=== PATIENT | male | born 1940 | race Caucasian/White ===

== ENCOUNTER → 2018-07-15 | Outpatient (CLI) | payer MEDICARE ==
[~2018-07-15] MED LIST: ALBUTEROL NEB; ATOR20TA PO; AZIT250T89 PO; BICA50TA5 PO; BUDE0.5A INH; CALCIUM PEG; CHOL200024 PO; DILT90TA PO; FISH OIL OMEGA1 EACH PO; FORM20VI NEB; GLUC1TAB27 PO; LEVO125T5 PO; OXYGEN NAS; SPIR25TA5 PO; TAMS0.4C2 PO; THEO400T2 PO; TIOT18CA INH; TORS5TAB4 PO; VIT1TABL32 PO; WARF6TAB47 PO; [UNRECOGNIZED DRUG - OTHER] PEG
== END | disposition home or self-care (01) ==
LOC: CVU 08:19
PROVIDERS: ATTEND Internal Medicine Cardiovascular Disease
DX: I08.3 Combined rheumatic disorders of mitral, aortic and tricuspid valves (principal); I82.411 Acute embolism and thrombosis of right femoral vein; I82.812 Embolism and thrombosis of superficial veins of left lower extremity; J44.9 Chronic obstructive pulmonary disease, unspecified; I10 Essential (primary) hypertension
CPT/HCPCS: 93306; 93970

== ENCOUNTER 2019-03-24 09:33 | Day surgery (SDC) | payer MEDICARE ==
[~2019-03-24] VITALS: Ht 185.4 cm; Wt 102.3 kg
[2019-03-24] MEDS ORDERED: SODIUM CHLORIDE 0.9% 500 ML IV PRN (10:00)
[2019-03-24 10:08] VITALS: BP 137/78
[2019-03-24 10:23] LABS: INTERNATIONAL NORMALIZED RATIO 2.72 (0.93-1.1); PROTHROMBIN TIME 29.1 Seconds (9.6-11.5)
[2019-03-24 10:26] LABS: ANION GAP 11 mmol/L (5-15); CALCIUM 9.7 mg/dL (8.5-10.1); CHLORIDE 98 mmol/L (98-107); CREATININE 1.19 mg/dL (0.7-1.3)
[2019-03-24] MEDS ORDERED: PLEASE ENTER HEIGHT AND WEIGHT MC SCH (10:30)
[2019-03-24] MEDS ORDERED: METO25TA91 PO (10:41)
[2019-03-24] MEDS ORDERED: LEUP3.75 SQ (10:41)
[2019-03-24] MEDS ORDERED: DOXY100C2 PO (10:41)
[2019-03-24] MEDS ORDERED: TIOT4MIS5 INH (10:49)
[2019-03-24] MEDS ORDERED: PROPOFOL 10 MG/ML, 20ML ONE (12:15)
== END 2019-03-24 13:19 | disposition home or self-care (01) ==
LOC: CACL 09:33
PROVIDERS: ATTEND Internal Medicine Cardiovascular Disease
DX: I48.91 Unspecified atrial fibrillation (principal); I11.0 Hypertensive heart disease with heart failure; I50.9 Heart failure, unspecified; J44.9 Chronic obstructive pulmonary disease, unspecified; Z87.891 Personal history of nicotine dependence
CPT/HCPCS: 36415; 80048; 85610; 92960; 93005; J2704